=== PATIENT | male | born 1985 | race African-American/Black ===

== ENCOUNTER 2018-07-07 19:06 | Emergency (ER) | payer SELFPAY ==
--- NOTE | 2018-07-07 19:48 | PDOC ---
History of Present Illness <Carmela Miranda - Last Filed: 07/07/18 23:15> - History of Present Illness Initial Comments: 07/07/18 19:46 32 no pmhx presents with new convulsions 1hr prior to arrival lasting approx 2 min without head trauma. Patient states he last smoked marijuana yesterday at around 1500 earlier in the day. Family witnessed him talking to the wall prior to convulsions. En route to the ED the patient was uncooperative with EMS and got 5 versed. Has never head convulsions before. <Krystal Mtz - Last Filed: 07/07/18 23:16> - General Chief Complaint: Seizure Stated Complaint: SEIZURE/POSSIBLE SUBSTANCE ABUSE Time Seen by Provider: 07/07/18 19:31 Past History <Carmela Miranda - Last Filed: 07/07/18 23:15> <Krystal Mtz - Last Filed: 07/07/18 23:16> - Past Medical History Allergies/Adverse Reactions: Allergies Allergy/AdvReac Type Severity Reaction Status Date / Time No Known Allergies Allergy Verified 07/07/18 19:59 *Physical Exam - Vital Signs Last Vital Signs Temp Pulse Resp BP Pulse Ox 98.0 F 79 22 115/70 100 07/07/18 19:10 07/07/18 19:10 07/07/18 19:10 07/07/18 19:10 07/07/18 19:10 <Carmela Miranda - Last Filed: 07/07/18 23:15> - Physical Exam Comments: 07/07/18 19:46 PERRLA, EOMI unremarkable exam c spine cleared with nexus 07/07/18 21:17 <Krystal Mtz - Last Filed: 07/07/18 23:16> ED Treatment Course - LABORATORY CBC & Chemistry Diagram: 07/07/18 20:17 07/07/18 20:17 - ADDITIONAL ORDERS Additional order review: Laboratory Results 07/07/18 07/07/18 20:17 20:17 Sodium 140 Potassium 4.4 Chloride 101 Carbon Dioxide 27 Anion Gap 12 BUN 14 Creatinine 1.1 Creat Clearance w eGFR > 60 Random Glucose 108 H Calcium 9.9 Total Bilirubin 0.4 AST 18 ALT 30 Alkaline Phosphatase 90 Total Protein 8.3 H Albumin 4.5 Urine Color Ltyellow Urine Appearance Clear Urine pH 5.0 Ur Specific Freeborn 1.024 Urine Protein 2+ H Urine Glucose (UA) Negative Urine Ketones Trace H Urine Blood Negative Urine Nitrite Negative Urine Bilirubin Negative Urine Urobilinogen 2.0 Ur Leukocyte Esterase Negative Urine WBC (Auto) 2 Urine RBC (Auto) <1 Ur Epithelial Cells Rare Urine Mucus Rare 07/07/18 20:17 RBC 5.66 H MCV 88.0 MCHC 32.8 RDW 14.3 MPV 8.9 Neutrophils % 90.7 H Lymphocytes % 5.0 L Monocytes % 3.8 Eosinophils % 0.1 Basophils % 0.4 - Medications Given in the ED: ED Medications Discontinued Medications Generic Name Dose Route Start Last Admin Trade Name Freq PRN Reason Stop Dose Admin Sodium Chloride 1,000 mls @ 0 mls/hr 07/07/18 20:00 07/07/18 20:26 Normal Saline - IV 07/07/18 20:01 1,000 mls/hr ASDIR ELZA Administration Wide Open Sodium Chloride 1,000 ml 07/07/18 20:24 07/07/18 20:32 Normal Saline - IV 07/07/18 20:25 1,000 ml ONCE ONE Administration <Carmela Miranda - Last Filed: 07/07/18 23:15> - LABORATORY CBC & Chemistry Diagram: 07/07/18 20:17 07/07/18 20:17 - RADIOLOGY Radiology Studies Ordered: Category Date Time Status HEAD CT WITHOUT CONTRAST [CT] Stat CT Scan 07/07/18 19:45 Ordered <Krystal Mtz - Last Filed: 07/07/18 23:16> Medical Decision Making - Medical Decision Making 07/07/18 19:56 32 no pmhx presents with new convulsions 1hr prior to arrival lasting approx 2 min without head trauma. Patient states he last smoked marijuana yesterday at around 1500 earlier in the day. Family witnessed him talking to the wall prior to convulsions. En route to the ED the patient was uncooperative with EMS and got 5 versed. Has never head convulsions before. DDX including but not limited to: new seizure/convulsion 2/2 substance abuse vs intracranial bleed/TBI vs arrythmia W/U: - ekg - cbc, cmp - ua, ucx, utox - head CT TX: - 1L NS ED Course: Patient lethargic but stable. 07/07/18 21:19 Patient reassessed. resting comfortably. in no acute distress 07/07/18 22:53 Patient reassessed stable. laughing at bedside. no distress. desires to go home. 07/07/18 23:16 CT head: unremarkable. Patient stable for discharge. Given follow up instructions and strict return precautions. Patient expressed understanding and agreed to plan. <Krystal Mtz - Last Filed: 07/07/18 23:16> *DC/Admit/Observation/Transfer <Carmela Miranda - Last Filed: 07/07/18 23:15> - Discharge Dispostion Decision to Admit order: No <Krystal Mtz - Last Filed: 07/07/18 23:16> Diagnosis at time of Disposition: Convulsion, Alcohol withdrawal seizure - Discharge Dispostion Disposition: HOME Condition at time of disposition: Stable - Patient Instructions Printed Discharge Instructions: DI for Seizure (Not Epilepsy/Seizure Disorder) Additional Instructions: You were seen in the ED for complaints of convulsions. In the ED you were evaluated with labwork and imaging. Your results were unremarkable. There does not appear to be an acute need for immediate hospitalization. You are advised to follow up with your primary care physician within 1 week. Please refrain from recreational substance abuse. Return to the ED immediately if you experience worsening or repeat convulsions, headaches, loss of consciousness, chest pain or shortness of breath.
[2018-07-07 19:59] VITALS: BP 115/70; PULSE 79; TEMP 98; BMI 20.4
[2018-07-07] MEDS ORDERED: SODIUM CHLORIDE 1,000 ML IV SCH (20:00)
[2018-07-07] MEDS ORDERED: SODIUM CHLORIDE 0.9% 500 ML INFUS.BAG IV ONE (20:24)
[2018-07-07 20:38] LABS: BASO % 0.4 % (0-2.0); EOS % 0.1 % (0-4.5); HEMATOCRIT 49.8 % (35.4-49); HEMOGLOBIN 16.3 GM/dL (11.7-16.9); MCH 28.9 pg (25.7-33.7); MCHC 32.8 g/dl (32.0-35.9); MEAN PLT VOLUME 8.9 fl (7.5-11.1); MONO % 3.8 % (3.8-10.2); NEUT % 90.7 % (42.8-82.8); PLATELET COUNT 226 K/MM3 (134-434); RBC 5.66 M/mm3 (4.00-5.60); RDW 14.3 % (11.9-15.9); WHITE BLOOD COUNT 10.2 K/mm3 (4.0-10.0)
[2018-07-07 21:09] LABS: ALBUMIN 4.5 g/dl (3.4-5.0); ANION GAP 12 MMOL/L (8-16); BILIRUBIN,TOTAL 0.4 mg/dL (0.2-1.0); BLOOD UREA NITROGEN 14 mg/dL (7-18); CALCIUM 9.9 mg/dL (8.5-10.1); CHLORIDE 101 mmol/L (98-107); CO2 27 mmol/L (21-32); CREATININE 1.1 mg/dL (0.55-1.3); GLUCOSE,RANDOM 108 mg/dL (74-106); POTASSIUM 4.4 mmol/L (3.5-5.1); SGOT/AST 18 U/L (15-37); SGPT/ALT 30 U/L (13-61); SODIUM 140 mmol/L (136-145); TOT PROT 8.3 g/dl (6.4-8.2)
[2018-07-07 21:10] LABS: ALK PHOS 90 U/L (45-117)
[2018-07-07 21:20] LABS: URINE APPEARANCE CLEAR; URINE BILIRUBIN NEGATIVE (<2.0 mg/dL); URINE COLOR LTYELLOW; URINE GLUCOSE (UA) NEGATIVE (NEGATIVE); URINE KETONE TRACE (NEGATIVE); URINE LEUK ESTERASE NEGATIVE (NEGATIVE); URINE NITRITE NEGATIVE (NEGATIVE)
[2018-07-07 21:23] LABS: EPI CELLS RARE /HPF (FEW); URINE MUCUS RARE; URINE PROTEIN 2+ (NEGATIVE)
[2018-07-07] MEDS ORDERED: ACETAMINOPHEN 1000 MG/100 ML VIAL (NON FORMULARY) IVPB ONE (22:56)
--- NOTE | 2018-07-07 23:10 | PDOC ---
Attending Attestation - HPI HPI: 07/07/18 23:19 The patient is a 32 year old male, with no significant past medical history, who presents to the emergency department s/p seizure. As per EMS, he had convulsions an hour prior to arrival, lasting 2 minutes. EMS reports giving 5 of Versed. He reports drinking almost every day approximately 2-22oz. Beers, 2 cups of liquor, and smokes marijuana. Today, he reports not drinking any alcohol and yesterday he had an excessive amount of alcohol intake. Mother denies him hitting his head at the time of the seizure. Allergies: NKA Past surgical history: None reported. Social History: Daily alcohol usage. Marijuana usage. - Physicial Exam PE: 07/07/18 23:19 GENERAL: Awake, alert, and fully oriented, in no acute distress HEAD: No signs of trauma EYES: PERRLA, EOMI, sclera anicteric, conjunctiva clear ENT: Auricles normal inspection, hearing grossly normal, nares patent, oropharynx clear without exudates. Moist mucosa NECK: Normal ROM, supple, no lymphadenopathy, JVD, or masses LUNGS: Breath sounds equal, clear to auscultation bilaterally. No wheezes, and no crackles HEART: Regular rate and rhythm, normal S1 and S2, no murmurs, rubs or gallops ABDOMEN: Soft, nontender, normoactive bowel sounds. No guarding, no rebound. No masses EXTREMITIES: Normal range of motion, no edema. No clubbing or cyanosis. No cords, erythema, or tenderness NEUROLOGICAL: Alert, awake, appropriate. Cranial nerves 2-12 intact. No deficits to light touch and temperature in face, upper extremities and lower extremities. No motor deficits in the in face, upper extremities and lower extremities. No pronator drift. Normoreflexic in the upper and lower extremities. Normal speech. Toes are down-going bilaterally. Gait is normal without ataxia. SKIN: Warm, Dry, normal turgor, no rashes or lesions noted. <Nic Castro - Last Filed: 07/07/18 23:19> - Resident Resident Name: Krystal Mtz - ED Attending Attestation I have performed the following: I have examined & evaluated the patient, The case was reviewed & discussed with the resident, I agree w/resident's findings & plan - Medical Decision Making 07/07/18 23:14 Patient Name: JIAN ALATORRE THIS IS A PRELIMINARY REPORT FROM [facility]ICE PRESIDENT LENDING DATE OF SERVICE: 2018-07-07 22:31:04 IMAGES: 134 EXAM: HEAD CT WITHOUT CONTRAST HISTORY: Convulsions COMPARISON: None. FINDINGS: Brain parenchyma is normal in attenuation with no mass or hematoma. There is no midline shift. Taylor and white matter differentiation is normal. Ventricles are normal. Sulci and extra-axial CSF spaces are normal. Intracranial vascular structures are normal in attenuation. There is no calvarial fracture. Paranasal sinuses are normally aerated. IMPRESSION: Normal head 07/08/18 04:42 Pt denies ever using K2. He smoked only pot. He is also a regular alcohol drinker. He drinks 44oz beer regularly and finishes off the night with a couple glasses of hard liquor. Pt is ot in DTs, though he hasn't had a drink in a day, but it is plausible that he has alcohol withdrawal seizure today. He is refusing detox of any kind and he has no other complaints. Labs normal, exam normal, and CT head normal. <Carmela Miranda - Last Filed: 07/08/18 04:44> Attestations - Attestations 07/07/18 23:20 Documentation prepared by Nic Castro, acting as diploma medical assistant for Carmela Miranda MD. <Nic Castro - Last Filed: 07/07/18 23:19>
== END 2018-07-07 23:24 | disposition home or self-care (01) ==
LOC: JER 19:06
DX: G40.509 Epileptic seizures related to external causes, not intractable, without status epilepticus (principal); F10.10 Alcohol abuse, uncomplicated; F12.10 Cannabis abuse, uncomplicated
CPT/HCPCS: 36415; 70450-TC; 80053; 81003; 81015; 85025; 87086; 99283-25; J7030

== ENCOUNTER 2018-10-03 10:10 | Inpatient (IN) | payer MEDICARE ==
[2018-10-03] MEDS ORDERED: SODIUM CHLORIDE 1,000 ML IV STA (11:20)
--- NOTE | 2018-10-03 12:31 | PDOC ---
History of Present Illness - General Chief Complaint: Seizure Stated Complaint: SEIZURE Time Seen by Provider: 10/03/18 10:28 History Source: Patient Exam Limitations: No Limitations - History of Present Illness Initial Comments: 10/03/18 12:00 32-year-old male presents to ED for evaluation of witnessed seizure activity. As per sister who patient resides with she heard a thump and found her brother wrapped in a blanket with generalized tremors in the hallway. She had called EMS who administered Versed since patient continued to have generalized tremors without incontinence, drooling, or vomiting. As per patient who was alert and arousable upon arrival he states has had a seizure back in June when he experienced "hot flashes" Prior to his seizure and this morning at around 4 AM had again "hot flashes" patient was discharged after having a head CT and lab work done here . Patient does drink alcohol daily to every other day but denies which were all symptoms such as tremors, nausea, GI complaints or diarrhea. Patient states drinks only when he has the money to buy it and had a full STD workup done last week at the clinic which she states was negative. Patient states only other history is sinus allergies. Patient states smokes marijuana but denies other drug use. Timing/Duration: resolved prior to arrival Severity: moderate Associated Symptoms: reports: seizure Past History - Travel Traveled outside of the country in the last 30 days: No Close contact w/someone who was outside of country & ill: No - Past Medical History Allergies/Adverse Reactions: Allergies Allergy/AdvReac Type Severity Reaction Status Date / Time No Known Allergies Allergy Verified 07/07/18 19:59 COPD: No Seizures: Yes - Immunization History Td Vaccination: Yes TDAP Vaccination: Yes Immunization Up to Date: Yes - Suicide/Smoking/Psychosocial Hx Smoking History: Unknown if ever smoked Have you smoked in the past 12 months: No Number of Cigarettes Smoked Daily: 7 Cigars Per Day: 0 Information on smoking cessation initiated: No 'Breaking Loose' booklet given: 07/07/18 Hx Alcohol Use: Yes Drug/Substance Use Hx: No Substance Use Type: Alcohol, Marijuana Patient Lives Alone: No Lives with/in: sister Review of Systems - Review of Systems Able to Perform ROS?: No Constitutional: No: Symptoms Reported HEENTM: No: Symptoms Reported Respiratory: No: Symptoms reported Cardiac (ROS): No: Symptoms Reported ABD/GI: No: Symptoms Reported : No: Symptoms Reported Musculoskeletal: No: Symptoms Reported Integumentary: No: Symptoms Reported Neurological: Yes: Seizure Endocrine: No: Symptoms Reported Hematologic/Lymphatic: No: Symptoms Reported *Physical Exam - Vital Signs Last Vital Signs Temp Pulse Resp BP Pulse Ox 75 18 106/62 97 10/03/18 10:27 10/03/18 10:27 10/03/18 10:27 10/03/18 10:27 - Physical Exam General Appearance: Yes: Nourished, Appropriately Dressed. No: Apparent Distress HEENT: positive: EOMI, JOLIE, Pharynx Normal. negative: Pale Conjunctivae Neck: positive: Supple Respiratory/Chest: positive: Lungs Clear, Normal Breath Sounds. negative: Respiratory Distress, Accessory Muscle Use Cardiovascular: positive: Regular Rhythm, Regular Rate. negative: Murmur Gastrointestinal/Abdominal: positive: Soft. negative: Tenderness Musculoskeletal: negative: CVA Tenderness Extremity: positive: Normal Capillary Refill. negative: Pedal Edema Integumentary: positive: Normal Color, Warm, Moist, Swelling (3 cm hematomaover left eyebrow) Neurologic: positive: Motor Strength 5/5 (ambulatory) Moderate Sedation - Procedure Monitoring Vital Signs: Procedure Monitoring Vital Signs Temperature Pulse Rate 75 10/03/18 10:27 Respiratory Rate 18 10/03/18 10:27 Blood Pressure 106/62 10/03/18 10:27 O2 Sat by Pulse Oximetry (%) 97 10/03/18 10:27 Heart Score/ECG Review - ECG Intrepretation Rhythm: Regular Rhythm (rate 79 normal sinus rhythm) ED Treatment Course - LABORATORY CBC & Chemistry Diagram: 10/03/18 11:32 10/03/18 11:32 - RADIOLOGY Radiology Studies Ordered: Category Date Time Status FACIAL BONES CT W/O CONTRAST [CT] Stat CT Scan 10/03/18 11:[address] WITHOUT CONTRAST [CT] Stat CT Scan 10/03/18 11:33 Ordered CHEST X-RAY PORTABLE* [RAD] Stat Radiology 10/03/18 11:19 Taken Medical Decision Making - Medical Decision Making 10/03/18 12:20 Complaint: seizure activity status post Versed administration Exam: Alert conversive , noted hematoma over left eyebrow vital stable. Plan: Labs, head CT, urine, IV access EKG and will admit and consult neuro 10/03/18 13:22 Laboratory Tests 10/03/18 10/03/18 11:32 11:32 WBC 8.2 Hgb 15.8 Hct 46.7 Plt Count 239 Neutrophils % 85.1 H Sodium 138 Potassium 4.2 Chloride 104 Carbon Dioxide 24 Anion Gap 10 BUN 16 Creat Clearance w eGFR 58.73 Random Glucose 84 Calcium 8.9 Magnesium 2.1 Total Bilirubin 0.3 AST 21 ALT 27 Alkaline Phosphatase 79 Total Protein 7.5 Albumin 4.0 Alcohol, Quantitative < 3.0 Urine pending 10/03/18 14:[address] shows no evidence of focal intracranial lesion or hemorrhage seen. Mild soft tissue swelling along the superior margin of the left orbit is noted. Facial CT shows no gross fracture identified both orbits appear intact. Awaiting urine. 10/03/18 14:56 Neurology paged overhead and consult placed in the computer. Case discussed with hospitalist and case management. patient meets criteria for inpatient. *DC/Admit/Observation/Transfer Diagnosis at time of Disposition: New onset seizure - Discharge Dispostion Decision to Admit order: Yes - Referrals - Patient Instructions - Post Discharge Activity
[2018-10-03 12:37] LABS: ALK PHOS 79 U/L (45-117); ANION GAP 10 MMOL/L (8-16); BILIRUBIN,TOTAL 0.3 mg/dL (0.2-1); BLOOD UREA NITROGEN 16 mg/dL (7-18); CALCIUM 8.9 mg/dL (8.5-10.1); CHLORIDE 104 mmol/L (98-107); CO2 24 mmol/L (21-32); CREATININE 1.4 mg/dL (0.55-1.3); GLUCOSE,RANDOM 84 mg/dL (74-106); MAGNESIUM 2.1 mg/dL (1.8-2.4); POTASSIUM 4.2 mmol/L (3.5-5.1); SGOT/AST 21 U/L (15-37); SGPT/ALT 27 U/L (13-61); SODIUM 138 mmol/L (136-145); TOT PROT 7.5 g/dl (6.4-8.2)
[2018-10-03 12:58] LABS: BASO % 0.3 % (0-2.0); EOS % 0.2 % (0-4.5); HEMATOCRIT 46.7 % (35.4-49); HEMOGLOBIN 15.8 GM/dL (11.7-16.9); LYMPH % 9.3 % (8-40); MCH 29.2 pg (25.7-33.7); MCHC 33.7 g/dl (32.0-35.9); MEAN CELL VOLUME 86.7 fl (80-96); MONO % 5.1 % (3.8-10.2); NEUT % 85.1 % (42.8-82.8); PLATELET COUNT 239 K/MM3 (134-434); RBC 5.39 M/mm3 (4.00-5.60); RDW 13.9 % (11.9-15.9); WHITE BLOOD COUNT 8.2 K/mm3 (4.0-10.0)
--- NOTE | 2018-10-03 15:33 | EKG ---
Test Reason : Blood Pressure : / mmHG Vent. Rate : 079 BPM Atrial Rate : 079 BPM P-R Int : 184 ms QRS Dur : 094 ms QT Int : 344 ms P-R-T Axes : 085 082 056 degrees QTc Int : 394 ms NORMAL SINUS RHYTHM POSSIBLE LEFT ATRIAL ENLARGEMENT BORDERLINE ECG NO PREVIOUS ECGS AVAILABLE Confirmed by Hitesh Melendrez ([id number]) on 10/03/2018 3:33:34 PM Referred By: Confirmed By:Hitesh Melendrez
--- NOTE | 2018-10-03 16:06 | HP ---
CHIEF COMPLAINT: Seizure PCP: Dr. Davy Simon HISTORY OF PRESENT ILLNESS: 32 year old male with a PMH significant for 2 prior seizures in the last 3 months presented to the ED after having a seizure at 4 AM witnessed by his sister. Patient reports he was found in the convulsing in the hallway wrapped in his comforter after his sister heard a thumping sound. She called 911 who administered Versed. There was no incontinence, drooling or vomiting. Denies fevers, syncope, chest pain, palpitations, abdominal pain, n/v/d. Patient had a seizure 3 months ago in 06/2018 the day after a heavy night of drinking. There were no significant findings on that ED work up and he was not admitted. He reports he had another seizure about a month ago when he fell to the ground and hit his head while he was intoxicated. He was told by his friend that it appeared he was having a seizure. He did not seek medical attention at that time. Patient is an every day marijuana smoker and drinks several times a week. The last time he reports having a drink was last week though BAL was 3.0. He reports having "hot flashes" his whole life where he feels hot and gets lightheaded for a few seconds. It often occurs after he yawns (about 1 out of every 7 yawns). He reports feeling light headed when he stands up quickly. He reports going to a clinic a month ago for a full STD work up including HIV, which he reports was negative. Upon admission to ED, patient no longer convulsing, VSS, labs WNL, CXR, EKG, Head CT unremarkable. He was given 1L of IV fluid and Neuro consult was ordered. He reports having a mild frontal head ache. Recent Travel: No PAST MEDICAL HISTORY: Seizure in June PAST SURGICAL HISTORY: No prior surgery Social History: Smoking: Every day 1/2 PPD cigarettes and marajuana Alcohol: Social; several times a week Drugs: Marijuana Family History: Two aunts with cancer Many relatives with Diabetes Allergies No Known Allergies Allergy (Verified 07/07/18 19:59) HOME MEDICATIONS: None REVIEW OF SYSTEMS CONSTITUTIONAL: (+) Night sweats for many years, intermittent "hot flashes" Absent: fever, chills, generalized weakness, malaise, loss of appetite, weight change HEENT: Absent: rhinorrhea, nasal congestion, throat pain, throat swelling, difficulty swallowing, mouth swelling, ear pain, eye pain, visual changes CARDIOVASCULAR: (+) lightheadedness Absent: chest pain, syncope, palpitations, irregular heart rate, peripheral edema RESPIRATORY: Absent: cough, shortness of breath, dyspnea with exertion, orthopnea, wheezing, stridor, hemoptysis GASTROINTESTINAL: Absent: abdominal pain, abdominal distension, nausea, vomiting, diarrhea, constipation, melena, hematochezia GENITOURINARY: Absent: dysuria, frequency, urgency, hesitancy, hematuria, flank pain, genital pain MUSCULOSKELETAL: Absent: myalgia, arthralgia, joint swelling, back pain, neck pain SKIN: Absent: rash, itching, pallor HEMATOLOGIC/IMMUNOLOGIC: Absent: easy bleeding, easy bruising, lymphadenopathy, frequent infections ENDOCRINE: Absent: unexplained weight gain, unexplained weight loss, heat intolerance, cold intolerance NEUROLOGIC: (+) Seizure Absent: headache, focal weakness or paresthesias, dizziness, unsteady gait, mental status changes, bladder or bowel incontinence PSYCHIATRIC: Absent: anxiety, depression, suicidal or homicidal ideation, hallucinations. PHYSICAL EXAMINATION Vital Signs - 24 hr 10/03/18 10:27 Pulse Rate 75 Respiratory 18 Rate Blood Pressure 106/62 O2 Sat by Pulse 97 Oximetry (%) GENERAL: Awake, alert, and fully oriented, in no acute distress, smells of cigarette smoke HEAD: Normal with no signs of trauma. EYES: +erythema and swelling to left brow bone, arcus senils, pupils equal, round and reactive to light, extraocular movements intact, sclera anicteric, conjunctiva clear. No lid lag. EARS, NOSE, THROAT: nares patent, oropharynx clear without exudates. Moist mucous membranes. NECK: Normal range of motion, supple without lymphadenopathy, JVD, or masses. LUNGS: Breath sounds equal, clear to auscultation bilaterally. No wheezes, and no crackles. No accessory muscle use. HEART: Regular rate and rhythm, normal S1 and S2 without murmur, rub or gallop. ABDOMEN: Soft, nontender, not distended, normoactive bowel sounds, no guarding, no rebound, no masses. No hepatomegaly or splenomegaly. MUSCULOSKELETAL: Normal range of motion at all joints. No bony deformities or tenderness. No CVA tenderness. UPPER EXTREMITIES: 2+ pulses, warm, well-perfused. No cyanosis. No clubbing. No peripheral edema. LOWER EXTREMITIES: 2+ pulses, warm, well-perfused. No calf tenderness. No peripheral edema. NEUROLOGICAL: No facial droop, tongue midline, normal speech. Normal gait. PSYCHIATRIC: Cooperative. Good eye contact. Appropriate mood and affect. SKIN: Warm, dry, normal turgor, no rashes or lesions noted, normal capillary refill. Laboratory Results - last 24 hr 10/03/18 10/03/18 11:32 11:32 WBC 8.2 RBC 5.39 Hgb 15.8 Hct 46.7 MCV 86.7 MCH 29.2 MCHC 33.7 RDW 13.9 Plt Count 239 MPV 9.0 Absolute Neuts (auto) 7.0 Neutrophils % 85.1 H Lymphocytes % 9.3 D Monocytes % 5.1 Eosinophils % 0.2 D Basophils % 0.3 Nucleated RBC % 0 Sodium 138 Potassium 4.2 Chloride 104 Carbon Dioxide 24 Anion Gap 10 BUN 16 Creatinine 1.4 H Creat Clearance w eGFR 58.73 Random Glucose 84 Calcium 8.9 Magnesium 2.1 Total Bilirubin 0.3 AST 21 ALT 27 Alkaline Phosphatase 79 Total Protein 7.5 Albumin 4.0 Alcohol, Quantitative < 3.0 ASSESSMENT/PLAN: 32 year old male with a PMH significant for 2 prior seizures in the last 3 months presented to the ED after having a seizure at 4 AM. Work up in the ED did not yield any significant findings; head CT negative. He was admitted for further neurology work up. Seizures - Head CT negative - U tox screen pending - Alcohol level <3.0 - Neurology consult ordered Tobacco use - Nicoderm patch Prophylaxis - OOB, ambulation FEN - PO intake adequate - Replete as needed - Regular diet Disp: Patient requires further inpatient treatment. Visit type - Emergency Visit Emergency Visit: Yes ED Registration Date: 10/03/18 Care time: The patient presented to the Emergency Department on the above date and was hospitalized for further evaluation of their emergent condition. - New Patient This patient is new to me today: Yes Date on this admission: 10/03/18 - Critical Care Critical Care patient: No
[2018-10-03 16:28] LABS: URINE APPEARANCE TURBID; URINE BILIRUBIN NEGATIVE (<2.0 mg/dL); URINE COLOR LTYELLOW; URINE GLUCOSE (UA) NEGATIVE (NEGATIVE); URINE KETONE 1+ (NEGATIVE); URINE LEUK ESTERASE NEGATIVE (NEGATIVE); URINE NITRITE NEGATIVE (NEGATIVE); URINE PROTEIN NEGATIVE (NEGATIVE)
[2018-10-03 16:39] VITALS: PULSE 63
[2018-10-03 17:05] LABS: COCAINE, UR NEGATIVE ng/ml (CUTOFF=300); METHADONE, UR NEGATIVE ng/ml (CUTOFF=300); OPIATES, URI NEGATIVE ng/ml (CUTOFF=300); PHENCYCLIDINE,URINE NEGATIVE ng/ml (CUTOFF=25); URINE AMPHETAMINES NEGATIVE ng/ml (CUTOFF=500); URINE BARBITURATES NEGATIVE ng/ml (CUTOFF=200)
[2018-10-03] MEDS ORDERED: levETIRAcetam 500 MG TABLET (FP) PO ONE ×2 (17:06→17:23)
[2018-10-03] MEDS: NICOTINE 21 MG/24 HOURS TOPICAL PATCH TD SCH ×2 (17:09→17:13)
[2018-10-03 17:10] LABS: URINE BENZODIAZEPINES POSITIVE ng/ml (CUTOFF=200)
[2018-10-03 20:40] VITALS: BMI 23.0
[2018-10-04 01:43] VITALS: BP 128/74; TEMP 98.6
--- NOTE | 2018-10-04 07:18 | HOSP ---
Subjective - Review of Symptoms Events since last encounter: Hospitalist Encounter Notified via microblog by the primary RN the patient wants to leave. Subjective: Arrived to the nursing station, patient is standing in the hallway. Patient is AAOx3, no seizure activity. Patient is requesting to leave without further care and treatments. Patient refused PE. Risks and dangers explained to patient, including . Patient advised to f/u with his PCP and Neurology. Patient verbalized understanding. Patient signed AMA, left the floor. Last Vital Signs Temp Pulse Resp BP Pulse Ox 98.6 F 63 18 128/74 98 10/04/18 01:42 10/04/18 01:42 10/04/18 01:42 10/04/18 01:42 10/03/18 20:07 Physical Examination Vital Signs: Vital Signs Temperature 98.6 F 10/04/18 01:42 Pulse Rate 63 10/04/18 01:42 Respiratory Rate 18 10/04/18 01:42 Blood Pressure 128/74 10/04/18 01:42 O2 Sat by Pulse Oximetry (%) 98 10/03/18 20:07 Labs: CBC, BMP 10/03/18 11:32 10/03/18 11:32 Hospitalist Encounter Assessment: Assessment: 32 year old male with a PMH significant for 2 prior seizures in the last 3 months presented to the ED after having a seizure at 4 AM. Work up in the ED did not yield any significant findings; head CT negative. He was admitted for further neurology work up. Recommendations/Interventions: f/u with your PCP, Neurology
[2018-10-04] MEDS ORDERED: levETIRAcetam 500 MG TABLET (FP) PO SCH (10:00)
== END 2018-10-04 01:50 | disposition left against medical advice (07) | DRG 53 ==
LOC: JER 10:10 → JERBED 14:57 → J8W 18:15
PROVIDERS: ADMIT Internal Medicine; ATTEND Nurse Practitioner Adult Health
DX: R56.9 Unspecified convulsions (principal); F17.210 Nicotine dependence, cigarettes, uncomplicated; F12.90 Cannabis use, unspecified, uncomplicated; F10.10 Alcohol abuse, uncomplicated
CPT/HCPCS: 36415; 70450-TC; 70486-TC; 71045-TC-FY; 80053; 80307; 81003; 83735; 85025; 93005; 93010; 99284-25; J7030